=== PATIENT | female | born 1995 | race Caucasian/White ===

== ENCOUNTER 2017-01-25 18:03 | Emergency (ER) | payer OTHER ==
[~2017-01-25] VITALS: Ht 172.7 cm; Wt 70.0 kg
[2017-01-25 18:05] VITALS: BP 130/65; PULSE 86; RESP 20; TEMP 98.1; O2SAT 97
[2017-01-25] MEDS ORDERED: DICL75TA PO (19:25)
[2017-01-25] MEDS ORDERED: CYCL1TAB29 PO (19:25)
[2017-01-25] MEDS ORDERED: NAPROXEN 500 MG TAB PO ONE (19:30)
[2017-01-25] MEDS ORDERED: CYCLOBENZAPRINE HCL 10 MG TAB PO ONE (19:30)
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
== END 2017-01-25 19:55 | disposition home or self-care (01) ==
LOC: NEPK 18:03
DX: S39.012A Strain of muscle, fascia and tendon of lower back, initial encounter (principal); V43.92XA Unspecified car occupant injured in collision with other type car in traffic accident, initial encounter
CPT/HCPCS: 99283